=== PATIENT | male | born 1990 | race Hispanic/Latino ===

== ENCOUNTER 2017-12-15 10:59 | Emergency (ER) | payer SELFPAY ==
--- NOTE | 2017-12-15 12:14 | CT ---
CT HEAD NONCONTRAST DATE: 12/15/17 HISTORY: Seizure. COMPARISON: 09/27/16. FINDINGS: There is no evidence of acute intracranial hemorrhage or infarct. The ventricles appear normal in siz e, shape, and position. There is no mass effect or shift of midline structures. Visualized paranasal sinuses remain well aerated. IMPRESSION: No acute intracranial abnormalities are demonstrated. POS: [facility]
[2017-12-15 12:30] LABS: #Eosinphils 0.3 thou/uL (0.0-0.7); #Lymphocytes 1.7 thou/uL (1.20-3.40); #Monocytes 0.6 thou/uL (0.11-0.59); #Neutrophils 5.3 thou/uL (1.40-6.50); %Basophils 0.1 % (0.0-1.0); %Eosinophils 3.2 % (0.0-10.0); %Lymphocytes 21.2 % (21.0-51.0); %Monocytes 7.7 % (0.0-10.0); %Neutrophils 67.7 % (42.0-75.0); Hemoglobin 15.8 g/dL (14.0-18.0); Mean Corpuscular HGB CONC 34.4 g/dL (32.0-36.0); Mean Corpuscular Hemoglobin 31.4 pg (27.0-31.0); Mean Corpuscular Volume 91.1 fL (78.0-98.0); Mean Platelet Volume 8.7 fL (7.4-10.4); Platelet Count 229 thou/uL (130-400); RBC Distribution Width 11.9 % (11.5-14.5); Red Blood Cell (RBC) Count 5.02 mill/uL (4.70-6.10); White Blood Cell (WBC) Count 7.8 thou/uL (4.8-10.8)
[2017-12-15 12:50] LABS: Anion Gap 11 mmol/L (10-20); BUN (Urea Nitrogen) 13 mg/dL (8.9-20.6); Calc. Creatinine Clearance 0 mL/min (70-130); Calcium 9.1 mg/dL (7.8-10.44); Carbon Dioxide 24 mmol/L (22-29); Chloride 105 mmol/L (98-107); Estimated GFR-MDRD Greater than 90; Glucose 98 mg/dL (70-105); Sodium 136 mmol/L (136-145)
== END 2017-12-15 15:20 | disposition home or self-care (01) ==
LOC: ERS 10:59
DX: S01.552A Open bite of oral cavity, initial encounter (principal); R56.9 Unspecified convulsions; W50.3XXA Accidental bite by another person, initial encounter
CPT/HCPCS: 36415; 70450; 80048; 85025

== ENCOUNTER 2018-08-29 00:20 | Emergency (ER) | payer SELFPAY ==
[2018-08-29] MEDS ORDERED: Adacel (T-DAP) 0.5 ML SYRINGE ONE (01:32)
[2018-08-29] MEDS ORDERED: Ibuprofen 800 MG TAB ONE (02:54)
== END 2018-08-29 02:57 | disposition home or self-care (01) ==
LOC: ERS 00:20
DX: T63.2X1A Toxic effect of venom of scorpion, accidental (unintentional), initial encounter (principal)
CPT/HCPCS: 90471; 90715

== ENCOUNTER 2019-09-23 23:06 | Inpatient (IN) | payer BC, OTHER ==
[~2019-09-23 23:06] MED LIST: Iopamidol-370 76% 500 ML 1 ML ONE
[2019-09-23 23:42] LABS: #Lymphocytes 0.8 thou/uL (1.20-3.40); #Monocytes 0.4 thou/uL (0.11-0.59); #Neutrophils 7.8 thou/uL (1.40-6.50); %Basophils 0.1 % (0.0-1.0); %Lymphocytes 8.8 % (21.0-51.0); %Monocytes 4.4 % (0.0-10.0); %Neutrophils 86.6 % (42.0-75.0); Hemoglobin 15.9 g/dL (14.0-18.0); Mean Corpuscular HGB CONC 34.1 g/dL (32.0-36.0); Mean Corpuscular Hemoglobin 30.4 pg (27.0-31.0); Mean Corpuscular Volume 89.2 fL (78.0-98.0); Mean Platelet Volume 8.6 fL (7.4-10.4); Platelet Count 182 thou/uL (130-400); RBC Distribution Width 11.8 % (11.5-14.5); Red Blood Cell (RBC) Count 5.23 mill/uL (4.70-6.10)
[2019-09-24 00:02] LABS: ALT (SGPT) 44 U/L (8-55); AST (SGOT) 52 U/L (5-34); Alkaline Phosphatase 71 U/L (40-110); Anion Gap 15 mmol/L (10-20); BUN (Urea Nitrogen) 8 mg/dL (8.9-20.6); Bilirubin, Total 0.3 mg/dL (0.2-1.2); Calc. Creatinine Clearance 0 mL/min (70-130); Calcium 8.8 mg/dL (7.8-10.44); Carbon Dioxide 27 mmol/L (22-29); Chloride 95 mmol/L (98-107); Estimated GFR-MDRD 88; Globulin 3.7 g/dL (2.4-3.5); Glucose 114 mg/dL (70-105); Protein, Total 7.7 g/dL (6.0-8.3); Sodium 133 mmol/L (136-145)
--- NOTE | 2019-09-24 00:11 | RAD ---
EXAM: XR Chest 1 View Portable PROVIDED CLINICAL HISTORY: Positive Covid. Difficulty breathing, nausea vomiting, headache. COMPARISON: 07/27/2014 FINDINGS: There are increased interstitial and patchy density seen in a perihilar location with patchy parenchy mal densities at the medial aspect of each lung base. No pleural effusion is seen. Cardiac silhouette is magnified by projection. Pulmonary vasculature is within normal limits. No other interv al change. IMPRESSION: Bilateral interstitial and patchy parenchymal densities in the perihilar locations bilaterally and at the medial aspect of each lung base. Findings are worrisome for infectious process and possibly atypical infectious process. Viral pneumonitis is a differential consideration.
[2019-09-24] MEDS ORDERED: Ondansetron PF 4 MG/2 ML Vial ONE (00:18)
[2019-09-24] MEDS ORDERED: Acetaminophen 500 MG TAB ONE (01:14)
[2019-09-24] MEDS ORDERED: Senokot S 8.6-50 MG TAB PO PRN (01:27)
[2019-09-24] MEDS ORDERED: Guaifenesin DM 100-10/5 ML UDCUP PO PRN (01:27)
[2019-09-24] MEDS ORDERED: Acetaminophen 650 MG Suppository PR PRN (01:27)
[2019-09-24] MEDS ORDERED: Ondansetron ODT 4 MG TAB PO PRN (01:27)
[2019-09-24] MEDS ORDERED: Calcium Carbonate 500 MG ChewTAB PO PRN (01:27)
[2019-09-24] MEDS ORDERED: Acetaminophen 325 MG TAB PO PRN (01:27)
[2019-09-24] MEDS ORDERED: Enoxaparin Sodium 40 MG/0.4 ML SYRINGE SC SCH ×2 (01:45→21:00)
--- NOTE | 2019-09-24 02:27 | HP ---
PRIMARY CARE PHYSICIAN: Faride[facility] in [facility]. CHIEF COMPLAINT: Dyspnea. HISTORY OF PRESENT ILLNESS: The patient is a 28-year-old male with a past medical history significant for seizures that presents to the ER for the above complaint. The patient reports that he tested positive for COVID approximately 1 week ago. At that time, he had some mild respiratory symptoms, nonproductive cough, and a little bit of shortness of breath from time to time. Over the past several days, his symptoms have gotten worse, particularly in the past 2 days, they have become severe. He reports feeling very short of breath, dyspnea on exertion with associated productive cough and headache. He denies any chest pain or heart palpitations. He denies any abdominal pain, nausea, vomiting, or diarrhea. He reports that he had felt chills, but did not think he had any fever. For the above reasons, came to the ER. In the ER, he is found to be febrile 100.4, tachycardic with a heart rate of 116, tachypneic, breathing anywhere from 40-60 breaths per minute. He was 86% on room air, 100% on 2 L nasal cannula. Chest x-ray was positive for bilateral interstitial and patchy densities seen in the perihilar locations with parenchymal densities suspicious for COVID or viral pneumonitis. CTA of the chest was negative for any PE. EKG with sinus tach. Lactic acid was 2.2. WBCs were 9.0. The patient was given Zofran and 2 L fluid and admitted to the floor. PAST MEDICAL HISTORY: Seizures, last episode one year ago. PAST SURGICAL HISTORY: LASIK eye surgery. SOCIAL HISTORY: The patient lives in [facility] at home with his family. He reports drinking alcohol socially. He denies any history of smoking or illicit drug use. FAMILY HISTORY: Noncontributory to this case. ALLERGIES: NO KNOWN ALLERGIES. HOME MEDICATIONS: No home medications. REVIEW OF SYSTEMS: All review of systems are negative unless otherwise stated in the HPI. PHYSICAL EXAMINATION: VITAL SIGNS: Temperature of 100.4, blood pressure 132/79, heart rate 116, respiratory rate 43, 100% on 2 L nasal cannula. CONSTITUTIONAL: The patient is alert and oriented to person, place, and time. He is in moderate respiratory distress when ambulating. hHe is 100% on 2-4 L nasal cannula, able talk in complete sentences. HEAD: Atraumatic normocephalic. EYES: PERRLA. Extraocular muscles intact. Sclerae nonicteric. ENT: TMs intact bilaterally. EACs clear bilaterally. Nares patent bilaterally. Oropharynx clear. Uvula midline. Moist mucous membranes. No oral lesions. NECK: Supple. Trachea midline. No JVD. No cervical lymphadenopathy. No neck stiffness. RESPIRATORY: The patient is tachypneic, increased work of breathing. No rhonchi or rales or wheezes. CARDIAC: Sinus tachycardia. No murmurs, rubs, or gallops. ABDOMEN: Soft, nontender. Active bowel sounds. No rebound, no guarding, no rigidity. BACK: Full range of motion. No central spinous tenderness. No CVA tenderness. EXTREMITIES: Bilateral upper extremities, full range of motion. Strength normal. Sensation intact. Palpable radial pulses. Bilateral lower extremities, full range of motion. Normal strength. Sensation intact. Palpable pedal pulses. No swelling. NEUROLOGIC: The patient is alert and oriented to person, place, and time. Normal gait. No focal deficits. Sensation intact. PSYCHIATRIC: Normal affect. The patient is alert and oriented to person, place , and time. LABS AND DIAGNOSTICS: EKG, sinus tachycardia. CTA of the chest negative for PE. Chest x-ray consistent with a viral pneumonitis. Sodium 133, potassium 4, chloride 95, CO2 27, BUN 8, creatinine 1.0, glucose 114, total bilirubin 0.3, AST 52, ALT 44, alkaline phosphatase 71, albumin 4.0. WBC is 9.0, hemoglobin 15.9, hematocrit 46.6, platelets 182. Lactic acid was 2.2. IMPRESSION AND PLAN: 1. Acute hypoxic respiratory failure secondary to COVID. We will admit the patient to the telemetry for inpatient status. Expected length of stay greater than 2 midnights. The patient presented febrile, tachycardic and tachypneic. CTA negative for pulmonary embolism. Chest x-ray and CTA consistent with viral pneumonitis. Lactic acid of 2.2. White blood cells of 9.0. The patient is given 2 L in the ER. Blood cultures pending. Repeat lactic acid pending. We will continue oxygen, supportive care. We will check acute phase reactants baseline, D-dimer, ferritin, CRP level. 2. COVID-19 positive. The patient reports being tested and positive approximately 1 week ago with worsening symptoms in the past several days. 3. Sepsis, likely secondary to COVID-19 positive. The patient presented febrile , tachycardic, tachypneic. Lactic acid was 2.2, WBC is 9.0, given 2 L in the ER normal saline. 4. History of seizures. The patient reports last seizure more than a year ago. He is not on any medications at home. 5. Lovenox for deep venous thrombosis prophylaxis, Protonix for gastrointestinal prophylaxis six. The patient is a full code. 6. Discussed the case with Dr. Sulaiman Reynoso. Job ID: [id number] MTDD
[2019-09-24 02:29] LABS: Lactic Acid 0.9 mmol/L (0.5-2.2)
[2019-09-24] MEDS ORDERED: Enoxaparin Sodium 40 MG/0.4 ML SYRINGE ONE (02:38)
[2019-09-24 06:54] LABS: #Lymphocytes 1.1 thou/uL (1.20-3.40); #Monocytes 0.3 thou/uL (0.11-0.59); %Basophils 0.5 % (0.0-1.0); %Eosinophils 0.1 % (0.0-10.0); %Lymphocytes 12.7 % (21.0-51.0); %Neutrophils 82.7 % (42.0-75.0); Hemoglobin 13.5 g/dL (14.0-18.0); Mean Corpuscular HGB CONC 32.6 g/dL (32.0-36.0); Mean Corpuscular Hemoglobin 29.5 pg (27.0-31.0); Mean Corpuscular Volume 90.5 fL (78.0-98.0); Mean Platelet Volume 8.3 fL (7.4-10.4); Platelet Count 191 thou/uL (130-400); RBC Distribution Width 12.1 % (11.5-14.5); Red Blood Cell (RBC) Count 4.59 mill/uL (4.70-6.10); White Blood Cell (WBC) Count 8.5 thou/uL (4.8-10.8)
--- NOTE | 2019-09-24 07:04 | CT ---
PRELIMINARY REPORT/[facility]/EMERGENCY AFTER HOURS PROCEDURE: EXAM: CTA Chest with Intravenous Contrast CLINICAL HISTORY: COVID +. DIFFICULTY BREATHING, N/V, HEADACHE. IBPROFEN LAST AT 4PM. TECHNIQUE: Axial CTA images of the chest with intravenous contrast. Three-dimensional MIP/volume rend ered reformations were performed. CONTRAST: With; ISOVUE 370,100mL COMPARISON: None provided. FINDINGS: PULMONARY ARTERIES There is no intraluminal filling defect suspicious for PE. AORTA No thoracic aortic aneurysm or dissection. LUNGS Patchy bilateral groundglass infiltrates throughout the lungs bilaterally. Findings are most consiste nt with infectious pneumonitis. PLEURAL SPACES No pleural effusion. No pneumothorax. HEART AND MEDIASTINUM Enlarged bilateral hilar and mediastinal lymph nodes, likely reactive lymphadenopathy secondary to in fectious pneumonitis. BONES No focal osseous abnormality or acute fracture. UPPER ABDOMEN Diffuse fatty infiltration of the liver. IMPRESSION: 1. There is no intraluminal filling defect suspicious for PE. 2. Patchy bilateral groundglass infiltrates throughout the lungs bilaterally. Findings are most consi stent with infectious pneumonitis. 3. Enlarged bilateral hilar and mediastinal lymph nodes, likely reactive lymphadenopathy secondary to infectious pneumonitis. 4. Diffuse fatty infiltration of the liver. ELECTRONICALLY SIGNED BY: Daron Morse MD Sep 24, 2019 12:19:31 AM CDT This report is intended for review by the ordering physician only, in accordance of law. If you recei ve this report in error, please call [facility] at [phone]. FINAL REPORT EMERGENCY AFTER HOURS CTA CHEST WITH CONTRAST: FINDINGS/IMPRESSION: I agree with the findings and impression given in the preliminary report per [facility] physici an. 1. No evidence of pulmonary thromboembolism. 2. Multifocal ground-glass opacities are consistent with an infectious pneumonitis. POS: [facility]
[2019-09-24 07:16] LABS: Anion Gap 12 mmol/L (10-20); BUN (Urea Nitrogen) 7 mg/dL (8.9-20.6); Calc. Creatinine Clearance 0 mL/min (70-130); Calcium 8.2 mg/dL (7.8-10.44); Carbon Dioxide 26 mmol/L (22-29); Chloride 102 mmol/L (98-107); Estimated GFR-MDRD Greater than 90; Glucose 106 mg/dL (70-105); Sodium 136 mmol/L (136-145)
[2019-09-24] MEDS ORDERED: Ondansetron ODT 4 MG TAB ONE (09:41)
[2019-09-24] MEDS ORDERED: Acetaminophen 325 MG TAB ONE (09:50)
[2019-09-24 13:22] LABS: Actual Bicarbonate (HCO3a) 25.7 mEq/L (22-28); Analyzer IN Cardio ER; Base Excess (BEa) 1.5 mEq/L (-2.0 to +3.0); Calcium, Ionized (arterial) 1.12 mmol/L (1.12-1.30); Carboxyhemoglobin (COHb) 0.1 gm% (0.0-3.0); Hemoglobin (Hb) 14.9 g/dL (14.0-18.0); Potassium - ABG Lab 3.84 mmol/L (3.70-5.30); pH, Arterial 7.44 (7.35-7.45)
[2019-09-24 13:31] LABS: Puncture Site RRA
--- NOTE | 2019-09-24 16:37 | PDOC.HOSPP ---
- Subjective Encounter Date: 09/24/19 Subjective: patient seen on f/u for covid, refers feels ill and sob especially on movement. refers fever cough, states that deep breathing causes him to have coughing spells - Objective Vital Signs & Weight: Vital Signs (12 hours) Temp Pulse Resp BP Pulse Ox 09/24/19 14:46 99.6 F 96 38 H 130/63 98 Weight Weight 207 lb 12.8 oz Result Diagrams: 09/24/19 06:44 09/24/19 06:44 Hospitalist ROS - Review of Systems All other systems reviewed; all pertinent +/- noted in HPI/Subj - Exam General Appearance: NAD, ill appearing Eye: PERRL, anicteric sclera ENT: normocephalic atraumatic, no oropharyngeal lesions Neck: supple, symmetric, no JVD Heart: no murmur, no gallops, no rubs Heart - other findings: tachycardic Gastrointestinal: soft, non-tender, non-distended Extremities: no cyanosis, no clubbing, no edema Skin: normal turgor, no lesions, no rashes Neurological: cranial nerve grossly intact, normal sensation to touch Musculoskeletal: normal tone, normal strength, no muscle wasting Psychiatric: normal affect, normal behavior Hosp A/P (1) Sepsis Code(s): A41.9 - SEPSIS, UNSPECIFIED ORGANISM Status: Acute (2) Hypoxic Code(s): R09.02 - HYPOXEMIA Status: Acute (3) COVID-19 Code(s): U07.1 - COVID-19 Status: Acute (4) Hx of seizure disorder Code(s): Z86.69 - PERSONAL HISTORY OF DIS OF THE NERVOUS SYS AND SENSE ORGANS Status: Acute - Plan - on rocephin and azithromycin - symptomatic tx with cough medication tylenol for fever and zofran for nausea - holding ivfs, studies seem to suggest covid pts due better a little dry, last LA 0.9 -02 supplementation as needed currently on 2L and tolerating well, does drop when pt moves, adequate abgs - starting dexamethasone low dose 6mg iv daily -dvt prophylaxis
[2019-09-24] MEDS: Ondansetron PF 4 MG/2 ML Vial IVP PRN (18:03)
[2019-09-24] MEDS: cefTRIAXone\\ROCEPHIN 2 GM in Sodium Chloride 0.9% 100 ML IVPB SCH (18:03)
[2019-09-24] MEDS: Acetaminophen 325 MG TAB PO PRN (18:03)
[2019-09-24] MEDS: Azithromycin 500 MG in Sodium Chloride 0.9% 250 ML 250 ML IVPB SCH (19:20)
[2019-09-24] MEDS: Enoxaparin Sodium 40 MG/0.4 ML SYRINGE SC SCH (20:29)
[2019-09-25] MEDS: Acetaminophen 325 MG TAB PO PRN (02:35)
[2019-09-25] MEDS: Dexamethasone 4 mg/ml Vial SLOW IVP SCH (08:39)
[2019-09-25] MEDS ORDERED: Acetaminophen 325 MG TAB PO PRN (10:44)
[2019-09-25] MEDS ORDERED: HYDROcodone/Acetaminophen 5/325 mg Tablet PO PRN (10:45)
[2019-09-25] MEDS: Aluminum & Magnesium Hydroxide 60 ML, Lidocaine 2% Viscous Solution 30 ML, diphenhydrAM... SSW PRN (12:22)
--- NOTE | 2019-09-25 16:50 | PDOC.HOSPP ---
- Subjective Encounter Date: 09/25/19 Encounter Time: 09:00 Subjective: no overnight events. this morning, complains of persistent throat, pleuritic pain preventing him from sleeping, continued tachypnea. Otherwise no complaints. - Objective Vital Signs & Weight: Vital Signs (12 hours) Temp Pulse Resp BP BP Pulse Ox Pulse Ox 09/25/19 15:00 97 09/25/19 12:30 32 H 98 09/25/19 11:47 98.5 F 79 117/63 91 L 09/25/19 08:40 97 09/25/19 08:38 98.5 F 73 28 H 120/64 97 Pulse Ox Pulse Ox 09/25/19 15:00 94 L 97 09/25/19 12:30 09/25/19 11:47 09/25/19 08:40 09/25/19 08:38 Weight Admit Weight 207 lb 12.8 oz Weight 207 lb 12.8 oz I&O: 09/24/19 09/25/19 09/26/19 06:59 06:59 06:59 Intake Total 1450 Output Total 675 100 Balance 775 -100 Result Diagrams: 09/24/19 06:44 09/24/19 06:44 Hospitalist ROS - Review of Systems Constitutional: denies: fever, chills, sweats, weakness, malaise, other Respiratory: reports: cough, dry, shortness of breath, SOB with excertion, pleuritic pain. denies: hemoptysis, sputum, wheezing Cardiovascular: reports: chest pain. denies: palpitations, orthopnea, paroxysmal noc. dyspnea, edema, light headedness Gastrointestinal: denies: nausea, vomiting, abdominal pain, diarrhea Genitourinary: denies: dysuria, hematuria - Medication Medications: Active Medications Generic Name Dose Route Start Last Admin Trade Name Freq PRN Reason Stop Dose Admin Al Hydroxide/Mg Hydroxide 60 0 ml 09/25/19 10:44 09/25/19 12:22 ml/ Lidocaine HCl 30 ml/ SSW 10 ml Diphenhydramine HCl 75 mg PRN PRN Administration Mouth Irritation Dexamethasone 6 mg 09/25/19 09:00 09/25/19 08:39 Decadron SLOW IVP 6 mg DAILY SHERRELL Administration Enoxaparin Sodium 40 mg 09/24/19 21:00 06/19/20 20:29 Lovenox SC 40 mg 2100 SHERRELL Administration Azithromycin 500 mg/ Sodium 250 mls @ 250 mls/hr 09/24/19 18:00 09/24/19 19: 20 Chloride IVPB 250 mls Q24HR SHERRELL Administration Ceftriaxone Sodium 2 gm/ 100 mls @ 200 mls/hr 09/24/19 17:00 09/24/19 18:03 Sodium Chloride IVPB 100 mls Q24HR SHERRELL Administration Ondansetron HCl 4 mg 09/24/19 16:33 09/24/19 18:03 Zofran IVP 4 mg Q6H PRN Administration Nausea/Vomiting - Exam General Appearance: awake alert General - other findings: in mild distress due to pain when coughing and tachypnea ENT: normocephalic atraumatic, moist mucosa Neck: no JVD Heart: RRR, no murmur, no gallops, no rubs Respiratory: no wheezes, no rales, no ronchi Respiratory - other findings: tachypnic with shallow breathing, dry cough when breathing deeply Gastrointestinal: soft, non-tender, non-distended Extremities: no edema Psychiatric: normal affect, normal behavior, A&O x 3 Hosp A/P - Plan #covid pneumonia -per patient, diagnosed a week prior to presentation -clinically mild improvement in shortness of breath; remains tachypnic, tachycardic -continue decadron, azithro, ceftriaxone -tylenol and norco PRN pleuritic pain -melatonin -cough syrup preferably only at night -magic mouth wash swish and swallow PRN throat pain Full code DVT PPx: lovenox GI PPx: not Ix
[2019-09-25] MEDS: cefTRIAXone\\ROCEPHIN 2 GM in Sodium Chloride 0.9% 100 ML IVPB SCH (16:54)
[2019-09-25] MEDS: Ondansetron PF 4 MG/2 ML Vial IVP PRN (17:08)
[2019-09-25] MEDS: Azithromycin 500 MG in Sodium Chloride 0.9% 250 ML 250 ML IVPB SCH (17:46)
[2019-09-25] MEDS: Enoxaparin Sodium 40 MG/0.4 ML SYRINGE SC SCH (20:01)
[2019-09-25] MEDS: Melatonin 3 MG TAB PO SCH (20:02)
[2019-09-26] MEDS: Ondansetron PF 4 MG/2 ML Vial IVP PRN ×2 (03:10→21:08)
[2019-09-26 05:07] LABS: Anion Gap 15 mmol/L (10-20); BUN (Urea Nitrogen) 15 mg/dL (8.9-20.6); Calc. Creatinine Clearance 200 mL/min (70-130); Carbon Dioxide 23 mmol/L (22-29); Chloride 105 mmol/L (98-107); Estimated GFR-MDRD Greater than 90; Glucose 110 mg/dL (70-105); Potassium 4.4 mmol/L (3.5-5.1); Sodium 139 mmol/L (136-145)
[2019-09-26] MEDS: Dexamethasone 4 mg/ml Vial SLOW IVP SCH (08:55)
--- NOTE | 2019-09-26 10:58 | RAD ---
EXAM: Single view of the chest HISTORY: Shortness of breath COMPARISON: CTA chest 09/24/2019 FINDINGS: Single view of the chest shows a normal sized cardiomediastinal silhouette. Scattered multi focal peripheral airspace opacities in the lungs. The bones are unremarkable. IMPRESSION: Multifocal pneumonia
[2019-09-26] MEDS ORDERED: Benzonatate 100 MG CAP PO PRN (12:07)
[2019-09-26] MEDS: Sodium Chloride 0.9% 1,000 ML IV SCH (12:35)
--- NOTE | 2019-09-26 15:29 | PDOC.HOSPP ---
- Subjective Encounter Date: 09/26/19 Encounter Time: 10:00 Subjective: no overnight events. this morning, feeling better, breathing better, cough somewhat improved. complains of cold and numb right arm, and pain in the dorsal hand IV site. - Objective Vital Signs & Weight: Vital Signs (12 hours) Temp Pulse Resp BP Pulse Ox 09/26/19 12:45 97.6 F 72 24 H 118/67 99 09/26/19 09:05 98 09/26/19 09:00 98.8 F 82 28 H 124/57 L 98 Weight Admit Weight 207 lb 12.8 oz Weight 207 lb 12.8 oz I&O: 09/25/19 09/26/19 09/27/19 06:59 06:59 06:59 Intake Total 1450 970 240 Output Total 675 325 450 Balance 775 645 -210 Result Diagrams: 09/24/19 06:44 09/26/19 04:23 Hospitalist ROS - Review of Systems Constitutional: denies: fever, chills, sweats, weakness, malaise, other Cardiovascular: denies: chest pain, palpitations, orthopnea, paroxysmal noc. dyspnea, edema, light headedness, other Gastrointestinal: denies: nausea, vomiting, abdominal pain, diarrhea, constipation, melena, hematochezia, other Genitourinary: denies: dysuria, frequency, incontinence, hematuria, retention, other - Medication Medications: Active Medications Generic Name Dose Route Start Last Admin Trade Name Freq PRN Reason Stop Dose Admin Benzonatate 100 mg 09/26/19 12:07 09/26/19 12:37 Tessalon PO 100 mg TIDPRN PRN Administration Cough Al Hydroxide/Mg Hydroxide 60 0 ml 09/25/19 10:44 09/25/19 12:22 ml/ Lidocaine HCl 30 ml/ SSW 10 ml Diphenhydramine HCl 75 mg PRN PRN Administration Mouth Irritation Dexamethasone 6 mg 09/25/19 09:00 09/26/19 08:55 Decadron SLOW IVP 6 mg DAILY SHERRELL Administration Enoxaparin Sodium 40 mg 09/24/19 21:00 09/25/19 20:01 Lovenox SC 40 mg 2100 SHERRELL Administration Azithromycin 500 mg/ Sodium 250 mls @ 250 mls/hr 09/24/19 18:00 09/25/19 17: 46 Chloride IVPB 250 mls Q24HR SHERRELL Administration Ceftriaxone Sodium 2 gm/ 100 mls @ 200 mls/hr 09/24/19 17:00 09/25/19 16:54 Sodium Chloride IVPB 100 mls Q24HR SHERRELL Administration Sodium Chloride 1,000 mls @ 50 mls/hr 09/26/19 09:00 09/26/19 12:35 Normal Saline 0.9% IV 1,000 mls .Q20H SHERRELL Administration Melatonin 6 mg 09/25/19 21:00 09/25/19 20:02 Melatonin PO 6 mg HS SHERRELL Administration Ondansetron HCl 4 mg 09/24/19 16:33 09/26/19 03:10 Zofran IVP 4 mg Q6H PRN Administration Nausea/Vomiting - Exam General Appearance: NAD, awake alert Eye: PERRL Neck: no JVD Heart: RRR, no murmur, no gallops Respiratory: CTAB, no wheezes, no rales, no ronchi Respiratory - other findings: shallow, tachypnic Gastrointestinal: soft, non-tender, non-distended, normal bowel sounds Extremities: no edema Psychiatric: normal affect, normal behavior, A&O x 3 Hosp A/P - Plan #covid pneumonia -per patient, diagnosed a week prior to presentation -improved in shortness of breath; remains tachypnic -continue decadron, azithro, ceftriaxone -tylenol and norco PRN pleuritic pain -melatonin -cough syrup preferably only at night -magic mouth wash swish and swallow PRN throat pain Full code DVT PPx: lovenox GI PPx: not Ix ELOS: 2 midnights, awaiting improvement in tachypnea
[2019-09-26] MEDS: cefTRIAXone\\ROCEPHIN 2 GM in Sodium Chloride 0.9% 100 ML IVPB SCH (17:19)
[2019-09-26] MEDS: Azithromycin 500 MG in Sodium Chloride 0.9% 250 ML 250 ML IVPB SCH (19:08)
[2019-09-26] MEDS: Melatonin 3 MG TAB PO SCH (21:08)
[2019-09-26] MEDS: Enoxaparin Sodium 40 MG/0.4 ML SYRINGE SC SCH (21:08)
[2019-09-26] MEDS: Aluminum & Magnesium Hydroxide 60 ML, Lidocaine 2% Viscous Solution 30 ML, diphenhydrAM... SSW PRN (21:21)
[2019-09-27] MEDS ORDERED: Acetaminophen 500 MG TAB PO PRN (05:28)
[2019-09-27] MEDS: Sodium Chloride 0.9% 1,000 ML IV SCH (05:28)
[2019-09-27] MEDS: Dexamethasone 4 mg/ml Vial SLOW IVP SCH (08:55)
--- NOTE | 2019-09-27 13:42 | PDOC.EVN ---
Event Note - Event Note Event Note: Did not enter room to limit unnecessary exposure. Patient reports feeling and breathing better as well as improvement in his insomnia. Will continue same management. Tachypnea downtrending but shallow breathing persists. ELOS 2 midnights.
[2019-09-27] MEDS ORDERED: Azithromycin 250 MG TAB PO SCH (17:00)
[2019-09-27] MEDS: cefTRIAXone\\ROCEPHIN 2 GM in Sodium Chloride 0.9% 100 ML IVPB SCH (18:19)
[2019-09-27] MEDS: Enoxaparin Sodium 40 MG/0.4 ML SYRINGE SC SCH (22:01)
[2019-09-27] MEDS: Melatonin 3 MG TAB PO SCH (22:01)
[2019-09-28] MEDS: Sodium Chloride 0.9% 1,000 ML IV SCH ×2 (02:06→20:06)
[2019-09-28 05:22] LABS: Anion Gap 10 mmol/L (10-20); BUN (Urea Nitrogen) 14 mg/dL (8.9-20.6); Calc. Creatinine Clearance 195 mL/min (70-130); Calcium 8.4 mg/dL (7.8-10.44); Carbon Dioxide 26 mmol/L (22-29); Chloride 107 mmol/L (98-107); Estimated GFR-MDRD Greater than 90; Glucose 99 mg/dL (70-105); Magnesium 2.2 mg/dL (1.6-2.6); Phosphorus 3.4 mg/dL (2.3-4.7); Potassium 4.2 mmol/L (3.5-5.1); Sodium 139 mmol/L (136-145)
[2019-09-28] MEDS: Dexamethasone 4 mg/ml Vial SLOW IVP SCH (08:54)
[2019-09-28] MEDS: Ondansetron PF 4 MG/2 ML Vial IVP PRN (09:10)
--- NOTE | 2019-09-28 13:50 | PDOC.HOSPP ---
- Subjective Encounter Date: 09/28/19 Encounter Time: 08:00 Subjective: no overnight events. continues to feel and breathe better. remains short of breath with minimal exertion - Objective Vital Signs & Weight: Vital Signs (12 hours) Temp Pulse Pulse Resp BP BP BP 09/28/19 08:59 97.6 F 67 29 H 131/71 09/28/19 08:40 74 131/57 L 09/28/19 08:15 09/28/19 04:35 98.1 F 55 L 27 H 118/77 Pulse Ox Pulse Ox Pulse Ox 09/28/19 08:59 96 09/28/19 08:40 94 L 97 09/28/19 08:15 95 09/28/19 04:35 95 Weight Admit Weight 207 lb 12.8 oz Weight 199 lb 6.4 oz I&O: 09/27/19 09/28/19 09/29/19 06:59 06:59 06:59 Intake Total 1391 3733 Output Total 450 2676 325 Balance 941 1057 -325 Result Diagrams: 09/24/19 06:44 09/28/19 04:41 Hospitalist ROS - Review of Systems Constitutional: denies: fever, chills, sweats, weakness, malaise, other Respiratory: denies: cough, dry, shortness of breath, hemoptysis, SOB with excertion, pleuritic pain, sputum, wheezing, other Cardiovascular: denies: chest pain, palpitations, orthopnea, paroxysmal noc. dyspnea, edema, light headedness, other Gastrointestinal: denies: nausea, vomiting, abdominal pain, diarrhea, constipation, melena, hematochezia, other - Medication Medications: Active Medications Generic Name Dose Route Start Last Admin Trade Name Freq PRN Reason Stop Dose Admin Acetaminophen 1,000 mg 09/27/19 05:28 09/27/19 05:42 Tylenol PO 1,000 mg Q6H PRN Administration Fever/Mild Pain Azithromycin 500 mg 09/27/19 17:00 09/27/19 18:20 Zithromax PO 500 mg 1700 SHERRELL Administration Benzonatate 100 mg 09/26/19 12:07 09/26/19 12:37 Tessalon PO 100 mg TIDPRN PRN Administration Cough Al Hydroxide/Mg Hydroxide 60 0 ml 09/25/19 10:44 09/26/19 21:21 ml/ Lidocaine HCl 30 ml/ SSW 10 ml Diphenhydramine HCl 75 mg PRN PRN Administration Mouth Irritation Dexamethasone 6 mg 09/25/19 09:00 09/28/19 08:54 Decadron SLOW IVP 6 mg DAILY SHERRELL Administration Enoxaparin Sodium 40 mg 09/24/19 21:00 09/27/19 22:01 Lovenox SC 40 mg 2100 SHERRELL Administration Ceftriaxone Sodium 2 gm/ 100 mls @ 200 mls/hr 09/24/19 17:00 09/27/19 18:19 Sodium Chloride IVPB 100 mls Q24HR SHERRELL Administration Sodium Chloride 1,000 mls @ 50 mls/hr 09/26/19 09:00 09/28/19 02:06 Normal Saline 0.9% IV 1,000 mls .Q20H SHERRELL Administration Melatonin 6 mg 09/25/19 21:00 09/27/19 22:01 Melatonin PO Not Given HS SHERRELL Ondansetron HCl 4 mg 09/24/19 16:33 09/28/19 09:10 Zofran IVP 4 mg Q6H PRN Administration Nausea/Vomiting - Exam General Appearance: NAD, awake alert Eye: PERRL, anicteric sclera Neck: no JVD Heart: RRR, no murmur, no gallops, no rubs Respiratory: no wheezes, no ronchi, rales Gastrointestinal: soft, non-tender, non-distended, normal bowel sounds Extremities: no edema Psychiatric: normal affect, normal behavior, A&O x 3 Hosp A/P - Plan #covid pneumonia -per patient, diagnosed a week prior to presentation -breathing, tachypnea improving -inflammatory markers -continue decadron; stop ABx -tylenol and norco PRN pleuritic pain -melatonin -cough syrup preferably only at night -magic mouth wash swish and swallow PRN throat pain Full code DVT PPx: lovenox GI PPx: not Ix ELOS: 1-2 midnights
[2019-09-28 15:54] VITALS: BMI 28.5
[2019-09-28] MEDS: Melatonin 3 MG TAB PO SCH (20:06)
[2019-09-28] MEDS: Enoxaparin Sodium 40 MG/0.4 ML SYRINGE SC SCH (20:06)
[2019-09-29 05:41] LABS: #Basophils 0.1 thou/uL (0.0-0.2); #Eosinphils 0.3 thou/uL (0.0-0.7); #Lymphocytes 2.5 thou/uL (1.20-3.40); #Neutrophils 5.1 thou/uL (1.40-6.50); %Basophils 0.7 % (0.0-1.0); %Eosinophils 3.3 % (0.0-10.0); %Monocytes 10.7 % (0.0-10.0); %Neutrophils 57.2 % (42.0-75.0); Hemoglobin 15.1 g/dL (14.0-18.0); Mean Corpuscular HGB CONC 33.5 g/dL (32.0-36.0); Mean Corpuscular Hemoglobin 30.3 pg (27.0-31.0); Mean Corpuscular Volume 90.5 fL (78.0-98.0); Mean Platelet Volume 7.6 fL (7.4-10.4); Platelet Count 478 thou/uL (130-400); RBC Distribution Width 12.1 % (11.5-14.5)
[2019-09-29 06:04] LABS: Anion Gap 9 mmol/L (10-20); BUN (Urea Nitrogen) 18 mg/dL (8.9-20.6); CRP (Inflammatory) 1.78 mg/dL (= or < 0.5); Calc. Creatinine Clearance 184 mL/min (70-130); Calcium 8.7 mg/dL (7.8-10.44); Carbon Dioxide 27 mmol/L (22-29); Chloride 106 mmol/L (98-107); Estimated GFR-MDRD Greater than 90; Glucose 90 mg/dL (70-105); Magnesium 2.2 mg/dL (1.6-2.6); Potassium 4.2 mmol/L (3.5-5.1); Sodium 138 mmol/L (136-145)
[2019-09-29] MEDS: Dexamethasone 4 mg/ml Vial SLOW IVP SCH (08:18)
[2019-09-29 12:17] VITALS: BP 119/70; TEMP 98
== END 2019-09-29 15:45 | disposition home or self-care (01) | DRG 871 ==
LOC: ERS 23:06 → ERHOLD 09-24 00:57 → UNDODISIN 09-24 01:02 → 2SW 09-24 14:35
PROVIDERS: ADMIT Internal Medicine; ATTEND Internal Medicine
PROC: 8E0ZXY6 Isolation (ICD-10-PCS; principal; 2019-09-24)
DX: A41.89 Other specified sepsis (principal); U07.1 COVID-19; J12.89 Other viral pneumonia; J96.01 Acute respiratory failure with hypoxia; G40.909 Epilepsy, unspecified, not intractable, without status epilepticus; G47.00 Insomnia, unspecified
CPT/HCPCS: 36415; 71045; 71275; 80048; 80053; 82728; 82805; 83605; 83735; 84100; 85025; 85379; 86140; 87040; 93005; 96361; 96374; J0456; J0696; J1100; J1650; J2405; J3490; J7050; Q0162; Q0163; Q9967